=== PATIENT | male | born 1990 | race Caucasian/White ===

== ENCOUNTER → 2021-08-25 | Outpatient (CLI) | payer OTHER | END | disposition home or self-care (01) | LOC: RAD 13:36 | PROVIDERS: ATTEND Nurse Practitioner Family | DX: M25.511 Pain in right shoulder (principal) ==

== ENCOUNTER 2023-05-06 20:50 | Emergency (ER) | payer OTHER ==
[~2023-05-06] VITALS: Ht 170.1 cm; Wt 77.1 kg
[2023-05-06] MEDS ORDERED: IBUPROFEN600 MG PO (23:34)
== END 2023-05-06 23:41 | disposition home or self-care (01) ==
LOC: ED 20:50
DX: S90.31XA Contusion of right foot, initial encounter (principal); Z88.5 Allergy status to narcotic agent; W20.8XXA Other cause of strike by thrown, projected or falling object, initial encounter; Y93.89 Activity, other specified; Y92.89 Other specified places as the place of occurrence of the external cause; Y99.8 Other external cause status